=== PATIENT | female | born 1955 ===

== ENCOUNTER 2017-08-25 07:13 | Day surgery (SDC) | payer BC ==
[2017-08-16 13:03] VITALS: BMI 24.0
[2017-08-25] MEDS ORDERED: Propofol 10 mg/ml Inj (20 ML) ONE (08:51)
[2017-08-25] MEDS ORDERED: Sodium Chloride 0.9% 1,000 ML IV SCH (09:30)
[2017-08-25 11:31] VITALS: PULSE 68; RESP 18; TEMP 97.6; O2SAT 99
[2017-08-25 11:33] VITALS: BP 94/60
== END 2017-08-25 11:13 | disposition home or self-care (01) ==
LOC: ENDO 07:13
PROVIDERS: ATTEND Internal Medicine Gastroenterology
DX: K21.0 Gastro-esophageal reflux disease with esophagitis (principal); K56.2 Volvulus; K25.9 Gastric ulcer, unspecified as acute or chronic, without hemorrhage or perforation; K29.50 Unspecified chronic gastritis without bleeding; B96.81 Helicobacter pylori [H. pylori] as the cause of diseases classified elsewhere; K52.9 Noninfective gastroenteritis and colitis, unspecified; K64.8 Other hemorrhoids; K64.4 Residual hemorrhoidal skin tags; E78.5 Hyperlipidemia, unspecified
CPT/HCPCS: 43239; 45380; 88305; 88312; 88342; J2001; J2704; J3010; J7030; J7040